=== PATIENT | male | born 1980 | race Caucasian/White ===

== ENCOUNTER 2024-03-01 07:54 | Inpatient (IN) ==
[2024-03-01] MEDS: ACETAMINOPHEN 1,000 MG/100 ML VIAL IV STA (08:40)
[2024-03-01 08:55] LABS: Basophils # (auto) 0.03 K/uL (0.00-0.20); Basophils % (auto) 0.5 %; Eosinophils # (auto) 0.13 K/uL (0.00-0.50); Eosinophils % (auto) 2.1 %; Hematocrit (blood only) 46.9 % (42.0-52.0); Hemoglobin 16.4 g/dl (14.0-18.0); Immature Granulocytes # (auto) 0.02 K/uL (0.01-0.20); Immature Granulocytes % (auto) 0.3 %; Lymphocytes % (auto) 20.6 %; Mean Corpuscular Hemoglobin 29.4 pg (25.0-34.0); Mean Corpuscular Volume 84.2 fL (80.0-100.0); Mean Platelet Volume 10.3 fL (9.4-12.4); Monocytes # (auto) 0.56 K/uL (0.11-0.59); Monocytes % (auto) 8.9 %; Neutrophils # (auto) 4.28 K/uL (1.40-6.50); Neutrophils % (auto) 67.6 %; Platelet Count 114 K/uL (130-400); RDW Coefficient of Variation 11.1 % (11.5-14.5); RDW Standard Deviation 33.8 fL (36.4-46.3); Red Blood Count 5.57 M/uL (4.70-6.10); White Blood Count 6.32 K/ul (4.8-10.8)
[2024-03-01 09:31] LABS: Albumin Level 3.8 gm/dl (3.4-5.0); BUN Creatinine Ratio 17.4 (10-20); Bilirubin Direct 0.3 mg/dl (0-0.2); Bilirubin,Total 1.4 mg/dl (0.2-1.0); Calcium 9.5 mg/dl (8.6-10.3); Creatinine Clr Calc Pharmacy 164.4 ml/min; Potassium 4.1 mmol/L (3.5-5.1)
--- NOTE | 2024-03-01 09:46 | Emergency Department Note ---
Impression & Plan Lumbar disc herniation with radiculopathy, Encounter for pre-operative examination ED Provider Note NAME: DARÍO GONZALEZ AGE: 43 SEX: M : 1980 ARRIVES VIA: Walk-In INFORMANT: Patient, ED PROVIDER(S): Agueda Garcia MD CHIEF COMPLAINT: Back pain HPI: 43-year-old male senting for back pain. Patient had 4+ week history of this. He went to see Dr. Dash, orthopedic spine surgeon, who scheduled the procedure with him tomorrow for this pain. He has 2 bulging disks. He is not having change in his symptoms. He has no numbness in his groin, bowel or bladder incontinence or motor weakness. ROS: See above HPI for pertinent positives & negatives. A total of 10 systems reviewed and were otherwise negative. PAST MEDICAL HISTORY: See Below PAST SURGICAL HISTORY: See Below FAMILY HISTORY: See Below SOCIAL HISTORY: See Below HOME MEDICATIONS: See Below ALLERGIES: See Below VITALS: See Below PHYSICAL EXAMINATION: General: resting comfortably in no acute distress Head: Normocephalic and atraumatic Eyes: Normal inspection, extraocular muscles intact Ear, nose, throat: Normal external exam Neck: Normal range of motion Respiratory: lungs clear to auscultation bilaterally Cardiovascular: Regular rate/rhythm, no murmur GI: soft, nontender, no guarding or rebound Extremities: nontender, moves all extremities, positive straight leg raise test Neuro: The patient awake and alert, appropriately conversive, no focal deficits, symmetric faces Skin: Warm, dry, and intact MEDICAL DECISION MAKING: This is a 41-year-old male presenting for further back pain/hyperglycemia. -Patient on IV acetaminophen with improvement in symptoms -Patient has been on steroids for the past 3 weeks. His glucose is elevated at 346 without signs of significant DKA. Otherwise electrolytes are fairly within normal limits. -His back pain is not consistent with cauda equina. He is having excruciating lower back pain from these disc herniations. -Discussed care with Dr. Dash, his surgeon who will admit him for procedure tomorrow and pain control Differential diagnosis: Herniated disc, cauda equina, musculoskeletal spasm ER treatment provided: See below Independent History obtained from: Mother, father Diagnostics interpreted by me: ECG: None Cardiac Monitoring: An order was placed for continuous cardiac monitoring. The monitor shows a rate of 110 with sinus rhythm. Laboratory studies: As stated above and show below. Imaging studies: See below. Past Med/Surg History Problem List (Updated 03/01/24 @ 15:40 by Agueda Garcia MD) Lumbar disc herniation with radiculopathy (Acute) Encounter for pre-operative examination (Acute) Medical History (Updated 03/01/24 @ 15:40 by Agueda Garcia MD) Obesity Fatty liver Asthma childhood, no current issues, no inhalers Snores no sleep study done Surgical History History of liver biopsy Hx of colonoscopy History of open reduction and internal fixation (ORIF) procedure left ankle fracture Family History Other No family history of adverse response to anesthesia Social History Smoking Status: Never smoker Second Hand Exposure: No; Do You Dip or Chew Tobacco: No; Hx Alcohol Use: Yes (was a daily drinker but states quit ~1 mo ago) Hx Substance Use: No Preferred Language: Eritrean Communication Ability: Effective Radio Communications Superintendent Required: No Beliefs That Will Affect Care: None Current Living Situation: Significant Other Feels Safe at Home: Yes Assistive Devices: Contacts, Crutches and Glasses Allergies Allergies Allergy/AdvReac Type Severity Reaction Status Date / Time No Known Allergies Allergy Verified 02/29/24 10:48 Home Meds Home Medications Medication Instructions Recorded Confirmed pregabalin 75 mg capsule 75 mg PO BID 02/29/24 03/01/24 Results & Data (ED) Vital Signs Vital Signs - 24 hr 03/01/24 08:12 Temperature 36.6 C Temperature Source Temporal Artery Scan Pulse Rate 110 H Respiratory Rate 18 Respiratory Effort / Characteristics Non-Labored Spontaneous Respiratory Depth Normal Blood Pressure 126/88 Blood Pressure Mean 100 Pulse Oximetry 99 Oxygen Delivery Method Room Air Sepsis Recent Fever Within 48 Hours No Sepsis New/Unexplained Change in Mental Status No Sepsis Action Taken by Nursing No Action Required Laboratory Data 03/01/24 08:36 03/01/24 08:36 Lab Results 03/01/24 Range/Units 08:36 WBC 6.32 (4.8-10.8) K/ul RBC 5.57 (4.70-6.10) M/uL Hgb 16.4 (14.0-18.0) g/dl Hct 46.9 (42.0-52.0) % MCV 84.2 (80.0-100.0) fL MCH 29.4 (25.0-34.0) pg MCHC 35.0 (32.0-36.0) g/dL RDW Std Deviation 33.8 L (36.4-46.3) fL RDW Coeff of Smooth 11.1 L (11.5-14.5) % Plt Count 114 L (130-400) K/uL MPV 10.3 (9.4-12.4) fL Immature Gran % (Auto) 0.3 % Neut % (Auto) 67.6 % Lymph % (Auto) 20.6 % [place] % (Auto) 8.9 % Eos % (Auto) 2.1 % Baso % (Auto) 0.5 % Neut # (Auto) 4.28 (1.40-6.50) K/uL Lymph # (Auto) 1.30 (1.20-3.40) K/uL [place] # (Auto) 0.56 (0.11-0.59) K/uL Eos # (Auto) 0.13 (0.00-0.50) K/uL Baso # (Auto) 0.03 (0.00-0.20) K/uL Immature Gran # (Auto) 0.02 (0.01-0.20) K/uL Sodium 133 L (136-145) mmol/L Potassium 4.1 (3.5-5.1) mmol/L Chloride 96 L (98-107) mmol/L Carbon Dioxide 27 (21-32) mmol/L Anion Gap 10 (3-11) BUN 12 (6-23) mg/dl Creatinine 0.69 (0.6-1.4) mg/dl Est Cr Clr Drug Dosing 164.4 ml/min eGFR 118.49 BUN/Creatinine Ratio 17.4 (10-20) Glucose 346 H* (70-99(Fasting)) mg/dl Calcium 9.5 (8.6-10.3) mg/dl Total Bilirubin 1.4 H (0.2-1.0) mg/dl Direct Bilirubin 0.3 H (0-0.2) mg/dl AST 39 (13-39) U/L ALT 86 H (7-52) U/L Alkaline Phosphatase 81 (34-104) U/L Total Protein 7.0 (6.0-8.3) gm/dl Albumin 3.8 (3.4-5.0) gm/dl Lipase 29 (11-82) U/L Administered Medications Discontinued Medications Acetaminophen (Ofirmev) 1,000 mg in 100 mls @ 400 mls/hr IV NOW STA Stop: 03/01/24 08:35 Last Infusion: 03/01/24 08:55 Dose: Infused Documented By: Admin: 03/01/24 08:40 Dose: 400 mls/hr Documented By: MMF Discharge Plan Visit Data Chief Complaint: Back Injury/Pain Stated Complaint: BACK PAIN, TRAVEL DOWN LT LEG, HYPERGLYCEMIA ED Provider: Agueda Garcia Discharge Problem: Lumbar disc herniation with radiculopathy, Encounter for pre-operative examination Patient Disposition: Admitted As Inpatient Discharge Instructions Interventions: ED Discharge Assessment Last Done: 03/01/24 15:24
--- NOTE | 2024-03-01 13:24 | History & Physical Report ---
Date of Service March 01, 2024 Assessment & Plan (1) Lumbar disc herniation with radiculopathy: Plan: MRI lumbar spine dated 02/22/2024 performed 611 L2 unavailable for review. Demonstrates marked degenerative change with Modic disease L4-L5. There is components of bilateral neuroforaminal disease. There is evidence of a large disc herniation with caudal migration at L4-L5 with significant displacement of the traversing L5 nerve root. L5-S1 a small central disc osteophyte complex but no neural compression. Plan at length yesterday with the patient and his family reviewing his clinical course and treatment plan. We are considering a lumbar decompression discectomy L4-L5 on the left. My concern is the chronic back pain and met and significant degenerative disc disease leaving him with chronic pain as well as increased risk for recurrent disc herniation. Subsequently may consider a lumbar fusion at the time of surgery. Risk benefits pros cons alternatives were all in detail. Risk include but not limited to anesthesia blindness stroke paralysis nerve damage blood loss requiring transfusion infection requiring reoperation. Isabella with a marked improvement of his back and leg symptoms and and time recovery of his neurologic deficit. At this time we will be made n.p.o. after midnight plan for surgery tomorrow. History of Present Illness Chief Complaint: Back and left leg pain with weakness Primary Care Provider: NO PCP This is a 43-year-old male presents above-mentioned diagnosis. His pain is incapacitating. He has been unable to ambulate for approximately 4 weeks. He has had a history of chronic back pain with intermittent leg pain that progressed to its current severity when trying to load a crossbow 4 weeks ago. He now can only find a comfortable position when lying supine. Standing and walking requires crutches. He notes foot drop on the left and inability to pushoff with his left leg. He denies radicular complaints down his right lower extremity. He has failed physical therapy. Oral steroids provided little to no help. 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 He has been unable to work since the onset of his pain. Allergies Allergy/AdvReac Type Severity Reaction Status Date / Time No Known Allergies Allergy Verified 02/29/24 10:48 Home Medications Medication Instructions Recorded Confirmed Type pregabalin 75 mg capsule 75 mg PO BID 02/29/24 03/01/24 History Past Med/Surg History Problem List (Updated 03/01/24 @ 13:23 by Sivakumar Dash DO) Lumbar disc herniation with radiculopathy Encounter for pre-operative examination Medical History (Updated 03/01/24 @ 13:23 by Sivakumar Dash DO) Obesity Fatty liver Asthma childhood, no current issues, no inhalers Snores no sleep study done Surgical History History of liver biopsy Hx of colonoscopy History of open reduction and internal fixation (ORIF) procedure left ankle fracture Family History Other No family history of adverse response to anesthesia Social History Smoking Status: Never smoker Second Hand Exposure: No; Do You Dip or Chew Tobacco: No; Tobacco Cessation Education Requested by Patient: No Hx Alcohol Use: Yes (was a daily drinker but states quit ~1 mo ago) Hx Substance Use: No Preferred Language: [place]an Communication Ability: Effective Fund Manager Required: No Beliefs That Will Affect Care: None Current Living Situation: Significant Other Other Information That Helps Us Care for You: No Feels Safe at Home: Yes Safety Concerns: Feels Safe At This Time Assistive Devices: Contacts, Crutches and Glasses Physical Exam Physical Exam: On exam patient is most comfortable lying supine. Sitting up reproduces symptoms. He is +5-5 right plantarflexion dorsiflexion centralizes longus quadriceps. Sensory is intact. On the left he has marked tension signs straight leg raising. He has a 4 5 left dorsiflexion extensor houses longus plantarflexion. There is marked decrease in sensation. Results & Data Results & Data Vital Signs (Past 12 Hours) Vital Signs Temp Pulse Resp BP Pulse Ox O2 Del Method 03/01/24 08:12 36.6 C 110 H 18 126/88 99 Room Air Code Status & VTE Plan VTE Prophylaxis Plan VTE Prophylaxis will be ordered: Yes
[2024-03-01] MEDS ORDERED: ACETAMINOPHEN 1,000 MG/100 ML VIAL IV PRN (15:23)
[2024-03-01] MEDS ORDERED: LORazepam 0.5 MG TAB PO PRN (15:23)
[2024-03-01] MEDS ORDERED: ONDANSETRON INJ 2 MG/ML 2 ML VIAL IV PRN (15:23)
[2024-03-01] MEDS ORDERED: NALOXONE HCL 0.4 MG/1 ML VIAL/CARP IV PRN (15:23)
[2024-03-01] MEDS ORDERED: traMADol HCL 50 MG TABLET PO PRN (15:23)
[2024-03-01] MEDS ORDERED: LORazepam 2 MG/1 ML VIAL IV PRN (15:23)
[2024-03-01] MEDS ORDERED: PROMETHAZINE 12.5 MG/50.5 ML BAG IV PRN (15:23)
[2024-03-01] MEDS ORDERED: ONDANSETRON 4 MG OD TAB PO PRN (15:23)
[2024-03-01] MEDS ORDERED: ACETAMINOPHEN 500 MG TAB PO PRN (15:23)
[2024-03-01] MEDS ORDERED: MAGNESIUM HYDROXIDE SUSP 30 ML UDC PO PRN (15:23)
[2024-03-01] MEDS ORDERED: METOCLOPRAMIDE HCL INJ 5 MG/ML 2 ML VIAL IV PRN (15:23)
[2024-03-01] MEDS ORDERED: HYDROmorphone INJ 1 MG/ML SYRINGE IV PRN (15:23)
[2024-03-01] MEDS: oxyCODONE HCL IR 5 MG TAB (IMMEDIATE RELEASE) PO PRN (16:57)
--- NOTE | 2024-03-01 18:13 | Hospitalist Consultation ---
Date of Consultation March 01, 2024 Assessment & Plan (1) Lumbar disc herniation with radiculopathy: History of Present Illness Reason for Consultation: Routine Hospitalist Consultation - Medical Management Requesting Physician: Sivakumar Dash DO Attending Physician: Sivakumar Dash DO History of Present Illness Ross Hernandez is a 43y/o M with PMHx significant for fatty liver, neuropathy, asthma and obesity [facility] Dash for routine medical management. Allergies Allergy/AdvReac Type Severity Reaction Status Date / Time No Known Allergies Allergy Verified 02/29/24 10:48 Home Medications Medication Instructions Recorded Confirmed Type pregabalin 75 mg capsule 75 mg PO BID 02/29/24 03/01/24 History Patient History Medical History Obesity Fatty liver Asthma childhood, no current issues, no inhalers Snores no sleep study done Surgical History History of liver biopsy Hx of colonoscopy History of open reduction and internal fixation (ORIF) procedure left ankle fracture Family History Other No family history of adverse response to anesthesia Social History Smoking Status: Never smoker Second Hand Exposure: No; Do You Dip or Chew Tobacco: No; Hx Alcohol Use: Yes (was a daily drinker but states quit ~1 mo ago) Hx Substance Use: No Preferred Language: Paraguayan Communication Ability: Effective Police Artist Required: No Beliefs That Will Affect Care: None Current Living Situation: Significant Other Feels Safe at Home: Yes Safety Concerns: Feels Safe At This Time Assistive Devices: Contacts and Crutches Review of Systems Review of Systems: At least ten systems reviewed and negative, except as noted in the HPI. Results & Data Results & Data Vital Signs (Past 12 Hours) Vital Signs Temp Pulse Pulse Resp BP BP Pulse Ox 03/01/24 16:33 03/01/24 16:33 36.9 C 101 H 18 161/111 H 98 03/01/24 16:23 36.8 C 89 18 122/60 98 03/01/24 08:12 36.6 C 110 H 18 126/88 99 O2 Del Method 03/01/24 16:33 Room Air 03/01/24 16:33 Room Air 03/01/24 16:23 Room Air 03/01/24 08:12 Room Air Laboratory Results Short CBC 03/01/24 Range/Units 08:36 WBC 6.32 (4.8-10.8) K/ul Hgb 16.4 (14.0-18.0) g/dl Hct 46.9 (42.0-52.0) % Plt Count 114 L (130-400) K/uL BMP 03/01/24 08:36 Sodium 133 L Potassium 4.1 Chloride 96 L Carbon Dioxide 27 BUN 12 Creatinine 0.69 Glucose 346 H* Calcium 9.5 Liver Function 03/01/24 Range/Units 08:36 Total Bilirubin 1.4 H (0.2-1.0) mg/dl Direct Bilirubin 0.3 H (0-0.2) mg/dl AST 39 (13-39) U/L ALT 86 H (7-52) U/L Alkaline Phosphatase 81 (34-104) U/L Albumin 3.8 (3.4-5.0) gm/dl Medications Administered Oxycodone HCl (Oxycodone Hcl Ir 5 Mg Tab (Immediate Release)) 5 - 10 mg PO Q4H PRN PRN Reason: mod to severe pain Stop: 03/15/24 15:22 Last Admin: 03/01/24 16:57 Dose: 5 mg Documented By: BMR Discontinued Medications Acetaminophen (Ofirmev) 1,000 mg in 100 mls @ 400 mls/hr IV NOW STA Stop: 03/01/24 08:35 Last Infusion: 03/01/24 08:55 Dose: Infused Documented By: Admin: 03/01/24 08:40 Dose: 400 mls/hr Documented By: MMF
[2024-03-01] MEDS ORDERED: GLUCOSE 10 TAB/TUBE PO PRN (19:39)
[2024-03-01] MEDS ORDERED: GLUCOSE 40% GEL 15 GM TUBE PO PRN (19:39)
[2024-03-01] MEDS ORDERED: GLUCAGON FOR INJ 1 MG VIAL SQ PRN (19:39)
[2024-03-01] MEDS ORDERED: CARBOHYDRATES FOR HYPOGLYCEMIA PO PRN (19:39)
[2024-03-01] MEDS ORDERED: DEXTROSE 50% 50 ML SYRINGE IV PRN (19:39)
[2024-03-01] MEDS: HYDROmorphone INJ 0.5 MG/0.5 ML SYR IV PRN (19:53)
[2024-03-01] MEDS: PREGABALIN 75 MG CAP PO SCH (20:03)
[2024-03-01] MEDS: INSULIN ASPART PER UNIT CHARGE SC SCH (21:39)
--- NOTE | 2024-03-01 22:44 | Consultation ---
Date of Consultation March 01, 2024 Assessment & Plan (1) Severe back pain: 43-year-old male comes because of severe back pain. Patient states he has back pain for years but 4 weeks ago when he was trying to load crossbow the pain got worse. Since then it is progressively worsening and pain shooting into his left thigh region. He says he could not ambulate more than few feet because of severe pain. Says he is using crutches. Denies any bowel or bladder incontinence. Denies any fever. No abdominal pain. No chest pain or shortness of breath. No headache or dizziness. No runny nose or sore throat. Appetite is okay. Patient says he took prednisone for 3 weeks. Since last few days he i s on pregabalin. Patient denies any history of diabetes or hypertension. But his sugars are running high here on the labs. Severe back pain Lumbar disc herniation with radiculopathy based on MRI done seems as outpatient Pain control Management as per spine Ortho. Hyperglycemia Recently was on steroids sugars in 300s Possible underlying diabetes Sliding scale Will check HbA1c levels Close monitor DVT prophylaxis Per orthopedics Disposition Per orthopedics History of Present Illness Requesting Physician: 43-year-old male comes because of severe back pain. Patient states he has back pain for years but 4 weeks ago when he was trying to load crossbow the pain got worse. Since then it is progressively worsening and pain shooting into his left thigh region. He says he could not ambulate more than few feet because of severe pain. Says he is using crutches. Denies any bowel or bladder incontinence. Denies any fever. No abdominal pain. No chest pain or shortness of breath. No headache or dizziness. No runny nose or sore throat. Appetite is okay. Patient says he took prednisone for 3 weeks. Since last few days he is on pregabalin. Patient denies any history of diabetes or hypertension. But his sugars are running high here on the labs. Past medical history. None as per patient. Past surgical history. Left ankle surgery. Liver biopsy. Social history. No smoking. Says he used to drink 10 beers in a week but has not drank any since last 4 weeks. Denies any drug use. Family history. Father has hypertension. Reason for Consultation: Severe back pain Attending Physician: Sivakumar Dash, DO Allergies Allergy/AdvReac Type Severity Reaction Status Date / Time No Known Allergies Allergy Verified 02/29/24 10:48 Home Medications Medication Instructions Recorded Confirmed Type pregabalin 75 mg capsule 75 mg PO BID 02/29/24 03/01/24 History Patient History Medical History Obesity Fatty liver Asthma childhood, no current issues, no inhalers Snores no sleep study done Surgical History History of liver biopsy Hx of colonoscopy History of open reduction and internal fixation (ORIF) procedure left ankle fracture Family History Other No family history of adverse response to anesthesia Social History Smoking Status: Never smoker Second Hand Exposure: No; Do You Dip or Chew Tobacco: No; Hx Alcohol Use: Yes (was a daily drinker but states quit ~1 mo ago) Hx Substance Use: No Preferred Language: Monegasque Communication Ability: Effective Fishing Accessories Maker Required: No Beliefs That Will Affect Care: None Current Living Situation: Significant Other Feels Safe at Home: Yes Safety Concerns: Feels Safe At This Time Assistive Devices: Contacts and Crutches Review of Systems Review of Systems: All systems reviewed & are unremarkable except as noted in HPI & below Physical Exam Physical Exam: General-Not in distress Head- atraumatic Eyes- PERRL. ENT- oropharynx clear Neck- supple, no JVD. Lungs- clear to auscultation no wheezing or crackles. Heart- regular rate and rhythm; no murmur, no gallop. Abdomen- normal bowel sounds, soft, nontender, no distension Extremities- no pretibial edema, no erythema seen Neuro- alert, oriented PERRL, no facial palsy; no dysarthria; moves extremities Musculoskeletal Straight raise leg mild positive left leg Results & Data Vital Signs (Past 12 Hours) Vital Signs Temp Pulse Pulse Resp BP BP Pulse Ox 03/01/24 18:28 36.9 C 97 H 18 156/114 H 99 03/01/24 16:33 03/01/24 16:33 36.9 C 101 H 18 161/111 H 98 03/01/24 16:23 36.8 C 89 18 122/60 98 03/01/24 08:12 36.6 C 110 H 18 126/88 99 O2 Del Method 03/01/24 18:28 Room Air 03/01/24 16:33 Room Air 03/01/24 16:33 Room Air 03/01/24 16:23 Room Air 03/01/24 08:12 Room Air Diagnostic Findings Laboratory Results WBC 6.32 K/ul (4.8-10.8) 03/01/24 08:36 RBC 5.57 M/uL (4.70-6.10) 03/01/24 08:36 Hgb 16.4 g/dl (14.0-18.0) 03/01/24 08:36 Hct 46.9 % (42.0-52.0) 03/01/24 08:36 MCV 84.2 fL (80.0-100.0) 03/01/24 08:36 MCH 29.4 pg (25.0-34.0) 03/01/24 08:36 MCHC 35.0 g/dL (32.0-36.0) 03/01/24 08:36 RDW Std Deviation 33.8 fL (36.4-46.3) L 03/01/24 08:36 RDW Coeff of Smooth 11.1 % (11.5-14.5) L 03/01/24 08:36 Plt Count 114 K/uL (130-400) L 03/01/24 08:36 MPV 10.3 fL (9.4-12.4) 03/01/24 08:36 Immature Gran % (Auto) 0.3 % 03/01/24 08:36 Neut % (Auto) 67.6 % 03/01/24 08:36 Lymph % (Auto) 20.6 % 03/01/24 08:36 [place] % (Auto) 8.9 % 03/01/24 08:36 Eos % (Auto) 2.1 % 03/01/24 08:36 Baso % (Auto) 0.5 % 03/01/24 08:36 Neut # (Auto) 4.28 K/uL (1.40-6.50) 03/01/24 08:36 Lymph # (Auto) 1.30 K/uL (1.20-3.40) 03/01/24 08:36 [place] # (Auto) 0.56 K/uL (0.11-0.59) 03/01/24 08:36 Eos # (Auto) 0.13 K/uL (0.00-0.50) 03/01/24 08:36 Baso # (Auto) 0.03 K/uL (0.00-0.20) 03/01/24 08:36 Immature Gran # (Auto) 0.02 K/uL (0.01-0.20) 03/01/24 08:36 Sodium 133 mmol/L (136-145) L 03/01/24 08:36 Potassium 4.1 mmol/L (3.5-5.1) 03/01/24 08:36 Chloride 96 mmol/L (98-107) L 03/01/24 08:36 Carbon Dioxide 27 mmol/L (21-32) 03/01/24 08:36 Anion Gap 10 (3-11) 03/01/24 08:36 BUN 12 mg/dl (6-23) 03/01/24 08:36 Creatinine 0.69 mg/dl (0.6-1.4) 03/01/24 08:36 Est Cr Clr Drug Dosing 164.4 ml/min 03/01/24 08:36 eGFR 118.49 03/01/24 08:36 BUN/Creatinine Ratio 17.4 (10-20) 03/01/24 08:36 Glucose 346 mg/dl (70-99(Fasting)) H* 03/01/24 08:36 POC Glucose 317 mg/dl (70-99) H* 03/01/24 20:42 Calcium 9.5 mg/dl (8.6-10.3) 03/01/24 08:36 Total Bilirubin 1.4 mg/dl (0.2-1.0) H 03/01/24 08:36 Direct Bilirubin 0.3 mg/dl (0-0.2) H 03/01/24 08:36 AST 39 U/L (13-39) 03/01/24 08:36 ALT 86 U/L (7-52) H 03/01/24 08:36 Alkaline Phosphatase 81 U/L (34-104) 03/01/24 08:36 Total Protein 7.0 gm/dl (6.0-8.3) 03/01/24 08:36 Albumin 3.8 gm/dl (3.4-5.0) 03/01/24 08:36 Lipase 29 U/L (11-82) 03/01/24 08:36
[2024-03-02] MEDS: INSULIN ASPART PER UNIT CHARGE SC STA ×2 (01:33→12:23)
[2024-03-02] MEDS: INSULIN ASPART PER UNIT CHARGE SC SCH ×2 (06:03→17:33)
[2024-03-02 06:29] LABS: Hematocrit (blood only) 45.9 % (42.0-52.0); Hemoglobin 15.9 g/dl (14.0-18.0); Mean Corpuscular Hemoglobin 29.2 pg (25.0-34.0); Mean Corpuscular Hgb Conc 34.6 g/dL (32.0-36.0); Mean Corpuscular Volume 84.4 fL (80.0-100.0); Mean Platelet Volume 10.2 fL (9.4-12.4); Platelet Count 112 K/uL (130-400); RDW Coefficient of Variation 11.1 % (11.5-14.5); RDW Standard Deviation 34.2 fL (36.4-46.3); Red Blood Count 5.44 M/uL (4.70-6.10)
[2024-03-02 06:32] LABS: Albumin Globulin Ratio 1.1 (0.9-2); Albumin Level 3.7 gm/dl (3.4-5.0); BUN Creatinine Ratio 19.7 (10-20); Bilirubin,Total 1.1 mg/dl (0.2-1.0); Calcium 9.5 mg/dl (8.6-10.3); Creatinine Clr Calc Pharmacy 159.8 ml/min; Globulin 3.5 gm/dl (2.5-4.0); Magnesium 1.9 mg/dl (1.7-2.4); Phosphorus 4.2 mg/dl (2.5-4.9); Potassium 3.9 mmol/L (3.5-5.1); Total Protein 7.2 gm/dl (6.0-8.3)
[2024-03-02 08:35] LABS: Estimated Average Glucose 335 mg/dl; Hemoglobin A1C 13.3 % (4.5-5.6)
[2024-03-02] MEDS: LACTATED RINGER'S 1,000 ML IV SCH (12:03)
[2024-03-02] MEDS ORDERED: PHARMACY GLYCEMIC MGMT CONSULT PRN (12:24)
--- NOTE | 2024-03-02 12:26 | History & Physical Bridge Note ---
Date of Service March 02, 2024 History & Physical Bridge Note I have examined the patient, reviewed the History & Physical and in the interval since the performance of the History & Physical I have noted the following changes of clinical significance: no changes noted Patient's had severe left leg pain with inability to ambulate for over 4 weeks. He has been on chronic steroids and is struggling with hypertension and hyperglycemia. He is demonstrating progressive neurologic deficit. In light of his severe pain and inability to ambulate or work and now struggling with metabolic disease and recommending emergent lumbar laminectomy L4-L5 with possible fusion.
[2024-03-02] MEDS: ceFAZolin 2000MG 2,000 MG/15 ML SYR IV SCH ×2 (12:51→20:58)
--- NOTE | 2024-03-02 13:37 | Hospitalist Progress Note ---
Date of Service March 02, 2024 Assessment & Plan (1) Severe back pain: Plan: 43-year-old male comes because of severe back pain. Patient states he has back pain for years but 4 weeks ago when he was trying to load crossbow the pain got worse. Since then it is progressively worsening and pain shooting into his left thigh region. He says he could not ambulate more than few feet because of severe pain. Says he is using crutches. Denies any bowel or bladder incontinence. Denies any fever. No abdominal pain. No chest pain or shortness of breath. No headache or dizziness. No runny nose or sore throat. Appetite is okay. Patient says he took prednisone for 3 weeks. Since last few days he is on pregabalin. Patient denies any history of diabetes or hypertension. But his sugars are running high here on the labs. Severe back pain Lumbar disc herniation with radiculopathy based on MRI done seems as outpatient Pain control Management as per spine Ortho. Hyperglycemia New Onset T2DM Recently was on steroids sugars in 300s Consult glycemic pharmacist and plant technical specialist He likely will need d/c on insulin and will need close OP follow up DVT prophylaxis Per orthopedics PCP: None, pt will need to establish with PCP Disposition Per orthopedics I spent a total of 45 minutes reviewing notes, outpatient records, labs, medication, coordinating, documenting and providing care for this patient excluding time spent in the performance of separately billed services. Admission and Anticipated Discharge Date Admission Date: March 01, 2024 Supervising Physician Co-Signing Physician Notes Patient here for severe back pain and plan for surgery for lumbar disc herniation today. Patient was not seen by myself personally. patient noted to have elevated A1c, will need plant technical specialist consult and possible insulin and oral meds at discharge. Subjective NAEO. He reports pain over the last 4 weeks radiating down L leg making it extremely difficult to ambulate. He denies f/c/s, chest pain, sob, n/v/d. He is npo for procedure today. Review of Systems Review of Systems: All systems reviewed & are unremarkable except as noted in HPI & below Physical Exam Physical Exam: Gen: WD/WN, NAD, A&O x3 HEENT: Normocephalic, atraumatic, conjunctivae moist, sclerae anicteric, mucous membranes moist. Lung: Clear to Auscultation bilaterally, no wheezes/rales/rhonchi Heart: Regular rate, regular rhythm, no murmurs, rubs, or gallops Abdomen: Soft, NT, ND +BS x 4 Extremities: No edema Skin: Warm, no rash, negative turgor. Results & Data Results & Data Vital Signs (Past 12 Hours) Vital Signs Temp Pulse Pulse Resp BP Pulse Ox O2 Del Method 03/02/24 12:07 156/108 H 03/02/24 12:00 163/111 H 03/02/24 11:58 36.9 C 98 H 20 175/111 H 97 Room Air 03/02/24 07:26 36.7 C 91 H 16 137/95 96 Room Air 03/02/24 04:21 36.6 C 91 H 16 123/83 97 Room Air Medications Administered Current Inpatient Medications Acetaminophen (Acetaminophen 500 Mg Tab) 1,000 mg PO Q8H PRN PRN Reason: MILD Pain Scale 1,2,3 & Pre PT Stop: 03/31/24 15:22 Bisacodyl (Bisacodyl 10 Mg Supp) 10 mg GA DAILY PRN PRN Reason: Constipation Stop: 04/02/24 12:48 Dextrose (Dextrose 50% 50 Ml Syringe) 25 - 50 ml IV UD PRN; Protocol PRN Reason: Hypoglycemia Protocol Stop: 03/31/24 19:38 Glucagon (Glucagon For Inj 1 Mg Vial) 1 mg SQ UD PRN; Protocol PRN Reason: Hypoglycemia Protocol Stop: 03/31/24 19:38 Glucose (Glucose 40% Gel 15 Gm Tube) 15 - 30 gm PO UD PRN; Protocol PRN Reason: Hypoglycemia Protocol Stop: 03/31/24 19:38 Glucose (Glucose 10 Tab/Tube) 4 - 8 tab PO UD PRN; Protocol PRN Reason: Hypoglycemia Protocol Stop: 03/31/24 19:38 Hydromorphone HCl (Hydromorphone Inj 0.5 Mg/0.5 Ml Syr) 0.5 mg IV Q3H PRN PRN Reason: MOD pain (scale 4-6) & Pre PT Stop: 03/15/24 15:22 Last Admin: 03/01/24 19:53 Dose: 0.5 mg Hydromorphone HCl (Hydromorphone Inj 1 Mg/Ml Syringe) 1 mg IV Q3H PRN PRN Reason: severe pain (scale 7-10) Stop: 03/15/24 15:22 Acetaminophen (Ofirmev) 1,000 mg in 100 mls @ 400 mls/hr IV Q8H PRN PRN Reason: Pain Rating 1-3 & Pre PT Stop: 03/02/24 15:24 Cefazolin Sodium (Ancef 2000mg) 2,000 mg in 15 mls @ 3.75 mls/min IV PREOP ARACELI; Protocol Stop: 03/03/24 05:59 Promethazine HCl (Phenergan) 12.5 mg in 50.5 mls @ 202 mls/hr IV Q6H PRN PRN Reason: Nausea And Vomiting Stop: 03/31/24 15:22 Lactated Ringer's (Lr) 1,000 mls @ 15 mls/hr IV .Q24H ARACELI Stop: 03/03/24 11:44 Last Infusion: 03/02/24 12:49 Dose: Infused Insulin Aspart (Insulin Aspart Per Unit Charge) 0 units SC Q6 ARACELI Stop: 04/01/24 05:59 Last Admin: 03/02/24 06:03 Dose: 4 units Lorazepam (Lorazepam 0.5 Mg Tab) 0.5 mg PO Q8H PRN PRN Reason: sedation/anxiety Stop: 03/31/24 15:22 Lorazepam (Lorazepam 2 Mg/1 Ml Vial) 0.5 mg IV Q8H PRN PRN Reason: Sedation/Anxiety Stop: 03/31/24 15:22 Magnesium Hydroxide (Magnesium Hydroxide Susp 30 Ml Udc) 30 ml PO Q24H PRN PRN Reason: Constipation Stop: 03/31/24 15:22 Metoclopramide HCl (Metoclopramide Hcl Inj 5 Mg/Ml 2 Ml Vial) 10 mg IV Q6H PRN PRN Reason: Nausea &/or Vomiting Stop: 03/31/24 15:22 Miscellaneous (Carbohydrates For Hypoglycemia ) 15 - 30 gm PO UD PRN PRN Reason: Hypoglycemia Protocol Stop: 03/31/24 19:38 Miscellaneous Information (Pharmacy Glycemic Mgmt Consult) 1 each N/A UD PRN; Protocol PRN Reason: Consult Stop: 04/01/24 12:23 Naloxone HCl (Naloxone Hcl 0.4 Mg/1 Ml Vial/Carp) 0.1 mg IV Q5M PRN PRN Reason: Oversedation/respiratory dep Stop: 03/31/24 15:22 Ondansetron HCl (Ondansetron Inj 2 Mg/Ml 2 Ml Vial) 4 mg IV Q6H PRN PRN Reason: Nausea &/or Vomiting Stop: 03/31/24 15:22 Ondansetron HCl (Ondansetron 4 Mg Od Tab) 4 mg PO Q6H PRN PRN Reason: Nausea Stop: 03/31/24 15:22 Oxycodone HCl (Oxycodone Hcl Ir 5 Mg Tab (Immediate Release)) 5 - 10 mg PO Q4H PRN PRN Reason: mod to severe pain Stop: 03/15/24 15:22 Last Admin: 03/02/24 10:40 Dose: 5 mg Pregabalin (Pregabalin 75 Mg Cap) 75 mg PO BID ARACELI Stop: 03/31/24 20:59 Last Admin: 03/02/24 08:27 Dose: 75 mg Tramadol HCl (Tramadol Hcl 50 Mg Tablet) 50 - 100 mg PO Q4H PRN PRN Reason: Moderate-Severe pain & Pre PT Stop: 03/31/24 15:22
[2024-03-02] MEDS: FLOSEAL HEMOSTATIC MATRIX 10ML TOP ONE (14:25)
[2024-03-02] MEDS: ceFAZolin 330 MG/ML 1 GM VIAL ONE (14:32)
[2024-03-02] MEDS: BUPIVACAINE/EPINEPHRINE 0.25% 1:200,000 30 ML VIAL ONE (14:32)
--- NOTE | 2024-03-02 14:43 | Operative Report ---
Post Operative Report Pre & Post Diagnosis Operation Date: 03/02/24 12:55 Pre-Op Diagnosis: Lumbar disc herniation with radiculopathy Lumbar foraminal stenosis Post-Op Diagnosis: Same I identified the patient and participated in the time-out.: Yes Procedure Operation Date: 03/02/24 12:55 Actual Procedures #1 lumbar decompression with bilateral medial facetectomies and foraminotomies L4-L5. #2 posterior spinal fusion L4-5 by #3 placed posterior instrumentation L4-5. #4 interbody fusion L4-L5. #5 placement Spira 14 x 26 mm x 2 at L4-5. #6 placement of locally harvested morselized autograft in the posterior gutters. #7 placement is collagen sponge combined with Koros in the posterior lateral gutters and os design interbody space. #8 placement of versa wrap of the exposed dura. Surgeon Sivakumar Dash, Boiler Installer Katiuska Perez Estimated Blood Loss 250 Findings Consistent with Post-Op Diagnosis Specimens None Indications This is a 43-year-old male who presents with severe lumbar radiculopathy inability ambulate and progressive neurologic deficit. Patient also demonstrating evidence of hyperglycemia and hypertension secondary to chronic stress response due to chronic steroids to try the ameliorate his pain. He subsequently underwent emergent decompression fusion. Description of Procedure Patient was met with identified informed consent obtained. Patient was then taken to the operative suite underwent intubation placed in a prone position on the Andrew table atop the Vasu frame. All bony promises well-padded eyes inspected to ensure no external precipice upon the. This point the lumbar spine was prepped and draped normal sterile fashion. Sharp dissection with the assistance of Bovie cautery from down to and exposing the lamina of L4-L5. Then performed a decompression of L4 and attempted to mobilize the traversing L5 nerve root. I had extended decompression at the point of compromising the facet on the left to adequately access of the traversing root and address the disc extending out into the neuroforamen. Massive fragment of disc material was identified directly beneath the traversing root limiting in its excursion. After removing the fragments of disc I completed the laminectomy to include medial facetectomies and foraminotomies bilaterally. I then placed pedicle screws at L4-L5 bilaterally with assistance of fluoroscopy and appropriate size jerome placed. By way of transforaminal approach on the left a discectomy of L4-L5 was performed endplates guided to subcortical mean bone and a 14 x 26 mm spiral cage filled with os designed tapped into position. Then proceeded to the right transforaminal region. Discectomy performed endplates guided to subcortical bleeding bone and the second 14 x 26 mm Spira cage filled with os design tapped position. Rods were then compressed locked in final position bilaterally. Transverse processes of L4-5 burred to subcortical bleeding bone infuse collagen sponge, with Koros and local autograft placed in the posterior gutters. Versa wrap placed over the exposed dura. 15 round KEYUR drain inserted. The incision was then closed with 1 Vicryl the fascia 2-0 Vicryl subcutaneously and 4 Monocryl for final skin closure. Steri-Strips sterile dressing placed. Patient waken taken PACU stable condition. Please note Katiuska Perez's present for patient positioning complex portions of the patient's surgery. I attest to the content of the Intraoperative Record and any orders documented therein. Any exceptions are noted below.
--- NOTE | 2024-03-02 14:45 | Pharmacy Report ---
Pharmacy Glycemic Short Note 2 - Date of Service March 02, 2024 - Glycemic Short BSG Results (Last 24 hours): 03/01/24 03/01/24 03/02/24 20:38 20:42 00:16 Glucose POC Glucose 321 H* 317 H* 265 H 03/02/24 03/02/24 03/02/24 05:23 05:53 12:00 Glucose 251 H POC Glucose 251 H 239 H 03/02/24 13:48 Glucose POC Glucose 214 H OUTPATIENT ANTIDIABETIC REGIMEN: * none ASSESSMENT: * Ross Hernandez is a 43 yo M w/hx of asthma, obesity, fatty liver. Pt presents with severe back pain and difficulty w/ambulation x4 weeks. Patient found to have lumber disc herniation w/radiculopathy per MRI. Patient is currently undergoing L4-L5 decompression/possible fusion. 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 BSGs have been high since admission in 200s-300s and his current A1c is 13.3 with no former dx of diabetes, suggesting new onset diabetes and therefore pharmacy was consulted for glycemic management. PLAN FOR INPATIENT GLYCEMIC CONTROL: * Basal insulin * Plan to give Lantus x1 dose once patient confirmed he received dexamethasone preop; a reasonable dose would be 30 units. * Will likely need Lantus daily if dexamethasone ordered postop as well * Bolus insulin * NovoLog per scale ACHS or Q6hrs while NPO * Goal Range: Low 110 mg/dL - High 140 mg/dL * Correction Factor: 15 mg/dL/unit * Nutritional / Prandial insulin per carb ratio of 1 unit per 5 grams CHO consumed
[2024-03-02] MEDS: fentaNYL citrate PF 100 MCG/2 ML VIAL IV PRN (15:05)
[2024-03-02] MEDS ORDERED: HYDROmorphone INJ 2 MG/ML SYR/VIAL IV PRN (15:32)
[2024-03-02] MEDS ORDERED: ATROPINE SULFATE 0.1 MG/ML 10ML SYR IV PRN (15:32)
[2024-03-02] MEDS ORDERED: ePHEDrine sulfate 50 MG/ML AMP IV PRN (15:32)
[2024-03-02] MEDS ORDERED: ONDANSETRON INJ 2 MG/ML 2 ML VIAL IV PRN ×2 (15:32→16:33)
[2024-03-02] MEDS: INSULIN ASPART PER UNIT CHARGE SC ONE (16:25)
[2024-03-02] MEDS ORDERED: DO NOT ADMINISTER PNEUMOCOCCAL VACCINE PRN (16:33)
[2024-03-02] MEDS ORDERED: bisacodyL 10 MG SUPP PR PRN (16:33)
[2024-03-02] MEDS ORDERED: HYDROmorphone INJ 0.5 MG/0.5 ML SYR IV PRN (16:33)
[2024-03-02] MEDS ORDERED: ALUMINUM/MAGNESIUM SUSP 30 ML UDC PO PRN (16:33)
[2024-03-02] MEDS ORDERED: ACETAMINOPHEN 1,000 MG/100 ML VIAL IV PRN (16:33)
[2024-03-02] MEDS ORDERED: FAMOTIDINE 20 MG TAB PO PRN (16:33)
[2024-03-02] MEDS ORDERED: MAGNESIUM HYDROXIDE SUSP 30 ML UDC PO PRN (16:33)
[2024-03-02] MEDS ORDERED: ACETAMINOPHEN 500 MG TAB PO PRN (16:33)
[2024-03-02] MEDS ORDERED: PROMETHAZINE 12.5 MG/50.5 ML BAG IV PRN (16:33)
[2024-03-02] MEDS ORDERED: hydrOXYzine HCl 25 MG TAB PO PRN (16:33)
[2024-03-02] MEDS ORDERED: DO NOT ADMINISTER FLU VACCINE PRN (16:33)
[2024-03-02] MEDS ORDERED: SOD PHOSPHATE/SOD BIPHOSPHATE ENEMA 132 ML BTL PR PRN (16:33)
[2024-03-02] MEDS ORDERED: NALOXONE HCL 0.4 MG/1 ML VIAL/CARP IV PRN (16:33)
[2024-03-02] MEDS ORDERED: LORazepam 0.5 MG TAB PO PRN (16:33)
[2024-03-02] MEDS ORDERED: ONDANSETRON 4 MG OD TAB PO PRN (16:33)
[2024-03-02] MEDS ORDERED: METOCLOPRAMIDE HCL INJ 5 MG/ML 2 ML VIAL IV PRN (16:33)
[2024-03-02] MEDS ORDERED: LORazepam 2 MG/1 ML VIAL IV PRN (16:33)
[2024-03-02] MEDS ORDERED: diphenhydrAMINE Capsule 25 MG CAP PO PRN (16:33)
--- NOTE | 2024-03-02 16:43 | Anesthesiology Progress Note ---
Date of Service March 02, 2024 Anesthesia Post Procedure Vital Signs Vital Signs: Temp Pulse Pulse Resp BP BP Pulse Ox 03/02/24 16:25 36.6 C 103 H 13 123/80 100 03/02/24 16:10 102 H 16 130/87 98 03/02/24 15:55 99 H 12 129/86 98 03/02/24 15:45 100 H 13 136/84 99 03/02/24 15:35 97 H 14 132/81 97 03/02/24 15:25 100 H 12 142/87 H 97 03/02/24 15:15 94 H 12 125/87 99 03/02/24 15:05 98 H 15 140/93 99 03/02/24 14:55 100 H 20 129/90 98 03/02/24 14:49 36.2 C L 97 H 20 121/85 100 03/02/24 12:07 156/108 H 03/02/24 12:00 163/111 H 03/02/24 11:58 36.9 C 98 H 20 175/111 H 97 03/02/24 07:26 36.7 C 91 H 16 137/95 96 03/02/24 04:21 36.6 C 91 H 16 123/83 97 03/02/24 00:19 36.7 C 94 H 16 150/97 H 97 03/01/24 20:12 37.2 C 96 H 16 154/106 H 97 03/01/24 18:28 36.9 C 97 H 18 156/114 H 99 O2 Del Method O2 Flow Rate 03/02/24 16:25 Nasal Cannula 3 03/02/24 16:10 Nasal Cannula 3 03/02/24 15:55 Nasal Cannula 3 03/02/24 15:45 Nasal Cannula 3 03/02/24 15:35 Nasal Cannula 3 03/02/24 15:25 Nasal Cannula 3 03/02/24 15:15 Nasal Cannula 3 03/02/24 15:05 Oxymask 6 03/02/24 14:55 Oxymask 6 03/02/24 14:49 Oxymask 8 03/02/24 12:07 03/02/24 12:00 03/02/24 11:58 Room Air 03/02/24 07:26 Room Air 03/02/24 04:21 Room Air 03/02/24 00:19 Room Air 03/01/24 20:12 Room Air 03/01/24 18:28 Room Air Pain Intensity Back: Pain Intensity: 3 Transfer of Care Handoff Completed per policy Notes Mental Status: alert / awake / arousable and participated in evaluation Patient Amnestic to Procedure: Yes Nausea / Vomiting: adequately controlled Pain: adequately controlled Airway Patency, RR, SpO2: stable & adequate BP & HR: stable & adequate Hydration State: stable & adequate Anesthetic Complications: no major complications apparent and Pt Satisfied with anesthetic care
[2024-03-02] MEDS: oxyCODONE HCL IR 5 MG TAB (IMMEDIATE RELEASE) PO PRN (16:53)
[2024-03-02] MEDS: KETOROLAC 30 MG/ML VIAL IV SCH (16:54)
[2024-03-02] MEDS: DOCUSATE SODIUM/SENNA 50/8.6MG TAB PO SCH (20:58)
[2024-03-02] MEDS: LANTUS PER UNIT CHARGE SC SCH (21:01)
[2024-03-03] MEDS: INSULIN ASPART PER UNIT CHARGE SC SCH (00:39)
[2024-03-03] MEDS: POLYETHYLENE (MIRALAX) 17 GM PACK PO SCH (05:07)
[2024-03-03 06:40] LABS: Basophils # (auto) 0.02 K/uL (0.00-0.20); Basophils % (auto) 0.2 %; Eosinophils # (auto) 0.01 K/uL (0.00-0.50); Eosinophils % (auto) 0.1 %; Hematocrit (blood only) 40.7 % (42.0-52.0); Hemoglobin 14.2 g/dl (14.0-18.0); Immature Granulocytes # (auto) 0.05 K/uL (0.01-0.20); Immature Granulocytes % (auto) 0.4 %; Lymphocytes % (auto) 12.4 %; Mean Corpuscular Hemoglobin 29.3 pg (25.0-34.0); Mean Corpuscular Hgb Conc 34.9 g/dL (32.0-36.0); Mean Corpuscular Volume 84.1 fL (80.0-100.0); Mean Platelet Volume 10.4 fL (9.4-12.4); Monocytes % (auto) 8.9 %; Neutrophils # (auto) 8.79 K/uL (1.40-6.50); Platelet Count 151 K/uL (130-400); RDW Coefficient of Variation 10.9 % (11.5-14.5); RDW Standard Deviation 33.6 fL (36.4-46.3); Red Blood Count 4.84 M/uL (4.70-6.10); White Blood Count 11.27 K/ul (4.8-10.8)
--- NOTE | 2024-03-03 08:35 | Orthopedic Progress Note ---
Date of Service March 03, 2024 Assessment & Plan (1) Lumbar disc herniation with radiculopathy: Plan: Ross is postoperative day 1 status post lumbar decompression and fusion at L4- 5. He will start physical therapy today. DVT prophylaxis is in the form of t eds and SCDs. Continue with pain control. Work on aggressive bowel regimen. Anticipate discharge home within the next 24 to 48 hours. Admission and Anticipated Discharge Date Admission Date: March 01, 2024 Subjective Ross is postoperative day 1 status post lumbar decompression and fusion of L4- 5. Leg pain has resolved. Back pain is controlled. KEYUR drain output last shift was 50 cc. H&H this morning are 14.2 and 40.7 respectively. He has been up and ambulatory. No other complaints. Review of Systems Review of Systems: All systems reviewed & are unremarkable except as noted in HPI & below Physical Exam Physical Exam: He is sitting up in bed in no acute distress Alert and oriented x 3 lumbar dressing is clean dry intact with functioning KEYUR drain strength is intact bilateral lower extremities Calf soft nontender bilaterally Results & Data Vital Signs (Past 12 Hours) Vital Signs Temp Pulse Resp BP Pulse Ox O2 Del Method 03/03/24 07:31 36.6 C 92 H 18 123/86 94 Room Air 03/03/24 04:07 36.6 C 91 H 16 125/86 97 Room Air 03/02/24 22:28 36.7 C 111 H 16 152/96 H 97 Room Air 03/02/24 21:15 Room Air
[2024-03-03] MEDS: LANTUS PER UNIT CHARGE SC ONE (09:30)
[2024-03-03] MEDS ORDERED: bisacodyL 10 MG SUPP PR PRN (12:49)
[2024-03-03] MEDS: INSULIN HUMAN REGULAR PER UNIT 10 UNITS in SYRINGE 9.9 ML IV ONE (13:31)
--- NOTE | 2024-03-03 14:51 | Pharmacy Report ---
Pharmacy Glycemic Short Note 2 - Date of Service March 03, 2024 - Glycemic Short BSG Results (Last 24 hours): 03/02/24 03/02/24 03/02/24 14:50 16:39 20:33 POC Glucose 247 H 242 H 331 H* 03/02/24 03/03/24 03/03/24 20:35 00:33 04:06 POC Glucose 328 H* 256 H 205 H 03/03/24 03/03/24 03/03/24 07:43 11:41 13:36 POC Glucose 212 H 338 H* 294 H OUTPATIENT ANTIDIABETIC REGIMEN: * none ASSESSMENT: 03/03 * Ross received 75 units of insulin yesterday (30 were basal), received 11 units the day prior, glycemic control improving but BSGs still above goal * POD#1: Fasting BSG this AM elevated around 200, patient received 13 units of correctional overnight, will aim for an addition 10 units of basal insulin today to cover. Basal scale ordered based on BSG to allow for lower and higher doses (up to a weight based stress of 3) since true basal need is unknown. * NovoLog significantly tightened yesterday, BSG over 300 today at lunch even with significant increase in insulin dosage, will tighten carbohydrate ratio slightly and give 10 units of IV regular insulin to help bring down BSGs. He does not appear to have received steroids preoperatively which could have caused the elevated BSGs. 03/02 * Ross Hernandez is a 43 yo M w/hx of asthma, obesity, fatty liver. Pt presents with severe back pain and difficulty w/ambulation x4 weeks. Patient found to have lumber disc herniation w/radiculopathy per MRI. Patient is currently undergoing L4-L5 decompression/possible fusion. 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 BSGs have been high since admission in 200s-300s and his current A1c is 13.3 with no former dx of diabetes, suggesting new onset diabetes and therefore pharmacy was consulted for glycemic management. PLAN FOR INPATIENT GLYCEMIC CONTROL: * Basal insulin * Lantus 10-30 units SQ BID (see eMAR for additional details) * Bolus insulin * NovoLog per scale ACHS or Q6hrs while NPO * Goal Range: Low 110 mg/dL - High 140 mg/dL * Correction Factor: 12 mg/dL/unit * Nutritional / Prandial insulin per carb ratio of 1 unit per 4 grams CHO consumed
--- NOTE | 2024-03-03 14:56 | Pharmacy Report ---
Pharmacy Glycemic Short Note 2 - Date of Service March 03, 2024 - Glycemic Short BSG Results (Last 24 hours): 03/02/24 03/02/24 03/02/24 14:50 16:39 20:33 POC Glucose 247 H 242 H 331 H* 03/02/24 03/03/24 03/03/24 20:35 00:33 04:06 POC Glucose 328 H* 256 H 205 H 03/03/24 03/03/24 03/03/24 07:43 11:41 13:36 POC Glucose 212 H 338 H* 294 H OUTPATIENT ANTIDIABETIC REGIMEN: * none ASSESSMENT: * Ross Hernandez is a 43 yo M w/hx of asthma, obesity, fatty liver. Pt presents with severe back pain and difficulty w/ambulation x4 weeks. Patient found to have lumber disc herniation w/radiculopathy per MRI. Patient is currently undergoing L4-L5 decompression/possible fusion. 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 BSGs have been high since admission in 200s-300s and his current A1c is 13.3 with no former dx of diabetes, suggesting new onset diabetes and therefore pharmacy was consulted for glycemic management. PLAN FOR INPATIENT GLYCEMIC CONTROL: * Basal insulin * Plan to give Lantus x1 dose once patient confirmed he received dexamethasone preop; a reasonable dose would be 30 units. * Will likely need Lantus daily if dexamethasone ordered postop as well * Bolus insulin * NovoLog per scale ACHS or Q6hrs while NPO * Goal Range: Low 110 mg/dL - High 140 mg/dL * Correction Factor: 15 mg/dL/unit * Nutritional / Prandial insulin per carb ratio of 1 unit per 5 grams CHO consumed
[2024-03-03 15:21] VITALS: RESP 16
--- NOTE | 2024-03-03 15:59 | Hospitalist Progress Note ---
Date of Service March 03, 2024 Assessment & Plan (1) Severe back pain: Plan: 43-year-old male comes because of severe back pain. Patient states he has back pain for years but 4 weeks ago when he was trying to load crossbow the pain got worse. Since then it is progressively worsening and pain shooting into his left thigh region. He says he could not ambulate more than few feet because of severe pain. Says he is using crutches. Denies any bowel or bladder incontinence. Denies any fever. No abdominal pain. No chest pain or shortness of breath. No headache or dizziness. No runny nose or sore throat. Appetite is okay. Patient says he took prednisone for 3 weeks. Since last few days he is on pregabalin. Patient denies any history of diabetes or hypertension. But his sugars are running high here on the labs. He is being managed for the fo llowing: Severe back pain Lumbar disc herniation with radiculopathy based on MRI done as outpatient Pain control Management as per spine Ortho. Status post lumbar spinal surgery 03/02. DVT prophylaxis and physical therapy per recommendation from primary team. Monitor for acute blood loss anemia. Hyperglycemia New Onset T2DM Recently was on steroids A1c of 13.3, critical care educator on board. Patient will likely need metformin and insulin on discharge and close follow-up with diabetic clinic upon discharge. Such has been discussed with the patient at length and he is agreeable. Answered all his questions. He was made aware of hypoglycemic s/s and possible ADR of metformin (GI upset). He will need repeat A1c in 3 months time. DVT prophylaxis: Per orthopedics PCP: None, pt will need to establish with PCP Disposition: Per orthopedics, will need diabetic meds and supplies at discharge. Time spent: 50 min. Admission and Anticipated Discharge Date Admission Date: March 01, 2024 Subjective Patient was seen and examined at bedside. Patient was sitting up in chair, on room air, NAD, resting comfortably. Patient reports improvement in his radicular symptoms, reports operative site pain under control. Patient reports eating okay, has not moved bowel. Patient A1c was 13.3, 80 has discussed in detail at bedside, we discussed the importance of ongoing monitoring of diabetes and management of diabetes to prevent future complications. Patient advised to follow-up with diabetic clinic upon discharge. Patient agreeable for metformin and insulin upon discharge. Physical Exam Physical Exam: Gen: WD/WN, NAD, A&O x3 HEENT: Normocephalic, atraumatic, conjunctivae moist, sclerae anicteric, mucous membranes moist. Lung: Clear to Auscultation bilaterally, no wheezes/rales/rhonchi Heart: Regular rate, regular rhythm, no murmurs, rubs, or gallops Abdomen: Soft, NT, ND +BS x 4 Extremities: No edema Skin: Warm, no rash, negative turgor. Low back with clean dressing without soakage. KEYUR drain with minimal serosanguineous collection noted. Results & Data Results & Data Vital Signs (Past 12 Hours) Vital Signs Temp Pulse Resp BP Pulse Ox O2 Del Method 03/03/24 15:19 36.9 C 99 H 16 137/91 98 Room Air 03/03/24 07:31 36.6 C 92 H 18 123/86 94 Room Air 03/03/24 04:07 36.6 C 91 H 16 125/86 97 Room Air
[2024-03-03] MEDS: traMADol HCL 50 MG TABLET PO PRN (18:42)
[2024-03-03] MEDS: HYDROmorphone INJ 1 MG/ML SYRINGE IV PRN (20:55)
[2024-03-03] MEDS: LANTUS PER UNIT CHARGE SC SCH (20:56)
[2024-03-04 05:59] LABS: Hematocrit (blood only) 37.4 % (42.0-52.0); Hemoglobin 12.9 g/dl (14.0-18.0); Mean Corpuscular Hemoglobin 29.5 pg (25.0-34.0); Mean Corpuscular Hgb Conc 34.5 g/dL (32.0-36.0); Mean Corpuscular Volume 85.6 fL (80.0-100.0); Mean Platelet Volume 10.3 fL (9.4-12.4); Platelet Count 103 K/uL (130-400); RDW Coefficient of Variation 11.1 % (11.5-14.5); RDW Standard Deviation 34.5 fL (36.4-46.3); Red Blood Count 4.37 M/uL (4.70-6.10); White Blood Count 8.64 K/ul (4.8-10.8)
[2024-03-04 06:15] LABS: Magnesium 1.7 mg/dl (1.7-2.4); Potassium 4.1 mmol/L (3.5-5.1)
[2024-03-04 07:05] VITALS: BP 123/83; PULSE 99; TEMP 98.1; O2SAT 97
--- NOTE | 2024-03-04 08:51 | Pharmacy Report ---
Pharmacy Glycemic Short Note 2 - Date of Service March 04, 2024 - Glycemic Short BSG Results (Last 24 hours): 03/03/24 03/03/24 03/03/24 11:41 13:36 16:25 Glucose POC Glucose 338 H* 294 H 145 H 03/03/24 03/04/24 03/04/24 20:32 05:23 07:48 Glucose 271 H POC Glucose 136 H 272 H OUTPATIENT ANTIDIABETIC REGIMEN: * none * HbA1c 13.3% (03/02/24) ASSESSMENT: 03/04 * Ross received 110 units of insulin yesterday (30 were basal, 10 IV regular, 70 bolus) * Fasting BSG this AM elevated, will continue with a basal scale to allow up to a stress of 3 to be given twice daily based on BSG. Will lower threshold for higher basal dose to be given as it appears he needs more at this time. * No changes to Novolog at this time, appear to be covering and correcting adequately. Discussed with Dr. Braga this AM, plan to start metformin on discharge and will start while he remains here. Novolog may need adjusted with addition of metformin, pharmacy will continue to monitor. 03/03 * Ross received 75 units of insulin yesterday (30 were basal), received 11 units the day prior, glycemic control improving but BSGs still above goal * POD#1: Fasting BSG this AM elevated around 200, patient received 13 units of correctional overnight, will aim for an addition 10 units of basal insulin today to cover. Basal scale ordered based on BSG to allow for lower and higher doses (up to a weight based stress of 3) since true basal need is unknown. * NovoLog significantly tightened yesterday, BSG over 300 today at lunch even with significant increase in insulin dosage, will tighten carbohydrate ratio slightly and give 10 units of IV regular insulin to help bring down BSGs. He does not appear to have received steroids preoperatively which could have caused the elevated BSGs. 03/02 * Ross Hernandez is a 43 yo M w/hx of asthma, obesity, fatty liver. Pt presents with severe back pain and difficulty w/ambulation x4 weeks. Patient found to have lumber disc herniation w/radiculopathy per MRI. Patient is currently undergoing L4-L5 decompression/possible fusion. 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 BSGs have been high since admission in 200s-300s and his current A1c is 13.3 with no former dx of diabetes, suggesting new onset diabetes and therefore pharmacy was consulted for glycemic management. PLAN FOR INPATIENT GLYCEMIC CONTROL: * Hold outpatient oral diabetes medications * Basal insulin * Lantus 10-30 units SQ BID (see eMAR for additional details) * Bolus insulin * NovoLog per scale ACHS or Q6hrs while NPO * Goal Range: Low 110 mg/dL - High 140 mg/dL * Correction Factor: 12 mg/dL/unit * Nutritional / Prandial insulin per carb ratio of 1 unit per 3 grams CHO consumed
[2024-03-04] MEDS: metFORMIN HCL ER 500 MG TABCR PO SCH (09:13)
[2024-03-04] MEDS ORDERED: Continuous Glucose Monitor SCH (09:30)
--- NOTE | 2024-03-04 09:46 | Discharge Summary ---
Date of Service March 04, 2024 Admission HPI Per Admitting Provider This is a 43-year-old male presents above-mentioned diagnosis. His pain is incapacitating. He has been unable to ambulate for approximately 4 weeks. He has had a history of chronic back pain with intermittent leg pain that progressed to its current severity when trying to load a crossbow 4 weeks ago. He now can only find a comfortable position when lying supine. Standing and walking requires crutches. He notes foot drop on the left and inability to pushoff with his left leg. He denies radicular complaints down his right lower extremity. He has failed physical therapy. Oral steroids provided little to no help. 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 He has been unable to work since the onset of his pain. Principal Diagnosis Lumbar disc herniation with neurologic deficit Discharge Data Allergies Allergy/AdvReac Type Severity Reaction Status Date / Time No Known Allergies Allergy Verified 02/29/24 10:48 Consultations 03/01/24 12:47 ED Decision to Admit Stat 03/01/24 15:23 Consult Internal Medicine Routine Procedures Performed Operation Date: 03/02/24 12:55 Actual Procedures p L4-L5 Decompression and Fusion, Spinal Cord Monitoring(Not Applicable) - Sivakumar Dash, DO Diabetes Follow up Diabetes Follow-up Needed for HgbA1c >9%,Newly Diagnosed Diabetes Hospital Course (1) Lumbar disc herniation with radiculopathy: Patient was admitted to the hospital secondary to severe left leg pain and inability to ambulate and progressive neurologic deficit. He underwent emergent decompression fusion. Postoperatively his leg symptoms markedly proved. He is doing very well with physical therapy. His hypertension has resolved. His pain is well-controlled. Strength improving. Subsidy discharged home. Discharge orders instructions from the chart for further review. Total Time Total Time Spent Total Time Spent (In Minutes): 20 minutes Discharge Plan Discharge Items Patient Disposition: Home - Self-Care Reason For Visit: BACK PAIN, TRAVEL DOWN LT LEG, HYPERGLYCEMIA Discharge Diagnosis: Lumbar disc herniation with neurologic deficit posterior Activity: As commented below Non-emergency contact: Primary Care Provider Call non-emergency contact if: you have any medication questions Follow-up/Referrals: Grady Shetty MD [Outside Practitioners] - (Please ensure a close follow up appointment and diabetic education.) Diet: Regular Addtl Attending Provider Instructions: ACTIVITY RECOMMENDATIONS: SELF CARE INSTRUCTIONS AFTER THORACIC/LUMBAR FUSIONS 1. You may walk to your tolerance. It is good exercise for your legs and back. Expect some back and intermittent leg aches and pains. 2. You may perform "counter-top" level activities (make a sandwich, will with a project, etc.). 3. No bending or lifting of more than 10 pounds or back twisting of any nature (roll like a log when turning in bed). 4. You may ride in a car for 20-30 minutes at a time. No driving until after your first visit with your doctor. 5. Frequent changes of position and restricting sitting to 30 minutes at a time will help limit the amount of back spasms and stiffness you may experience. 6. You may discontinue the use of ambulatory aids (cane, crutches, etc.) once your strength and confidence allow. 7. You may research program internship the shower and let water strike your incision when you arrive home at least once daily. Do not take a tub bath, sit in a hot tub or go into a swimming pool until after your first recheck in the office. 8. You may resume previous diet. SPECIAL CARE INSTRUCTIONS: VERY IMPORTANT TO READ AND REVIEW A. Your surgical incision has been closed with a cosmetic suture under the skin that will dissolve in about 6 weeks. In 14 days, you can use a pair of clean scissors and cut the suture that is left outside of the skin at the ends of your incision. 1. The small skin tapes can be removed 7 days after surgery if they have not fallen off by that point. 2. You may keep the wound open to air as much as possible to promote healing after post-op day number 5 unless told otherwise by your doctor. 3. If you think the wound looks like it is becoming infected (redness or worsening drainage) and/or you are experiencing fever, chill or worsening back pain and muscle spasms, contact the office so that we may evaluate you as soon as possible. B. Complications are uncommon, but please contact us if you have any signs or symptoms of: 1. wound infection (fever higher than 102.5 degrees F, redness, separation of wound, drainage, or increasing pain from the incision) 2. blood clots in legs (pain, swelling, redness and warmth in legs) 3. urinary tract infection (fever higher than 102.5 degrees F, burning upon urination or increased frequency of urination) 4. nerve problems (inability to walk on your toes or heels, numbness, loss of bowel or bladder control) 5. any other symptoms that concern you C. Please call the office at if you have any concerns or questions about your operation or recovery. D. No smoking! Smoking drastically decreases the chance of a solid fusion. E. Do not take any anti-inflammatory medications (Indocin, Advil, Motrin, Aspirin, Naprosyn, etc.) as these may inhibit the chance of a solid fusion. Tylenol is okay to take for pain. MANAGING PAIN AFTER SPINAL SURGERY 1. Narcotic medication is intended for short-term use and will be provided for surgical pain. Surgical pain usually lasts for a period of 4-6 weeks. Narcotic medication includes Percocet, Vicodin, Darvocet, Tylenol #3 or Lortab. 2. Longer-term pain is more appropriately treated with non-narcotic medication such as Tylenol ES. 3. Muscle spasm is not appropriately treated with narcotics. Muscle relaxers such as Soma, Flexeril or Skelaxin can be used along with Tylenol ES. 4. Remember that we all live with some "aches and pains". This is not unusual or uncommon after an injury or as we get older. a. Back pain is expected and may include muscle spasms for 4 to 6 weeks after surgery. The pain should gradually improve. If the pain worsens for no apparent reason, please contact the office. b. Intermittent leg pain may also be experienced and should not be concerned about unless it worsens for no apparent reason. If so, please contact the office. 5. We will provide appropriate medication within the normal guidelines of their prescribed use. We will also be very cautious and aware of potential abuse and extended duration of patients' medication needs. a. Pain medications are for your comfort and to assist with sleep and rest so that the tissue can heal. They are not provided in order to return to normal activity and should not be used through the day. To do so or worsening pain at night can result from ongoing tissue damage and development of tolerance to the prescribed medicine. 6. Please allow 2-3 days to process refills. Prescriptions will not be mailed but must be picked up at the office. FOLLOW UP VISIT: Keep your scheduled follow-up appointment. Any questions, please call the office at . Pending Studies at Discharge: No Stand-Alone Forms: My [facility], Smoking Cessation Medications and DC Order Prescriptions: New tramadol 50 mg tablet 50 mg PO Q6H PRN (Reason: pain, moderate) Qty: 30 0RF oxycodone 5 mg tablet 5 mg PO Q6H PRN (Reason: pain) Qty: 30 0RF Continued pregabalin 75 mg Capsule 75 mg PO BID Discharge Orders: Discharge Order (Routine); Ordered 03/04/24 Ordered By: Sivakumar Dash Admission Data Admit Date/Time: 03/01/24 12:53 Attending Provider: Sivakumar Dash Admit Provider: Sivakumar Dash Primary Care Provider: PCP,NO Other Providers: Deja Braga; Sivakumar Dash; Kath Horton.
--- NOTE | 2024-03-04 11:53 | Hospitalist Progress Note ---
Date of Service March 04, 2024 Assessment & Plan (1) Severe back pain: Plan: 43-year-old male comes because of severe back pain. Patient states he has back pain for years but 4 weeks ago when he was trying to load crossbow the pain got worse. Since then it is progressively worsening and pain shooting into his left thigh region. He says he could not ambulate more than few feet because of severe pain. Says he is using crutches. Denies any bowel or bladder incontinence. Denies any fever. No abdominal pain. No chest pain or shortness of breath. No headache or dizziness. No runny nose or sore throat. Appetite is okay. Patient says he took prednisone for 3 weeks. Since last few days he is on pregabalin. Patient denies any history of diabetes or hypertension. But his sugars are running high here on the labs. He is being managed for the fo llowing: Severe back pain Lumbar disc herniation with radiculopathy based on MRI done as outpatient Pain control Management as per spine Ortho. Status post lumbar spinal surgery 03/02. DVT prophylaxis and physical therapy per recommendation from primary team. Monitor for acute blood loss anemia. 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 Patient will likely need metformin and insulin on discharge and close follow-up with diabetic clinic upon discharge. Such has been discussed with the patient at length and he is agreeable. Answered all his questions. He was made aware of hypoglycemic s/s and possible ADR of metformin (GI upset). He will need repeat A1c in 3 months time. Patient will be discharged on metformin 500 mg twice daily and Lantus 30 units daily with a plan for close follow-up with PCP and diabetic clinic upon discharge which patient is aware of. DVT prophylaxis: Per orthopedics PCP: None, pt will need to establish with PCP Disposition: Per orthopedics, will need diabetic meds and supplies at discharge. Time spent: 40 min. Admission and Anticipated Discharge Date Admission Date: March 01, 2024 Subjective Patient was seen and examined at bedside. Patient was sitting up in bed, on room air, NAD, resting comfortably. Patient reports improvement in his radicular symptoms, reports operative site pain under control. Patient denies any other complaints. importance of insulin and metformin and close follow-up with PCP and diabetic clinic upon discharge reiterated. Physical Exam Physical Exam: Gen: WD/WN, NAD, A&O x3 HEENT: Normocephalic, atraumatic, conjunctivae moist, sclerae anicteric, mucous membranes moist. Lung: Clear to Auscultation bilaterally, no wheezes/rales/rhonchi Heart: Regular rate, regular rhythm, no murmurs, rubs, or gallops Abdomen: Soft, NT, ND +BS x 4 Extremities: No edema Skin: Warm, no rash, negative turgor. Low back with clean dressing without soakage. KEYUR drain with minimal serosanguineous collection noted. Results & Data Results & Data Vital Signs (Past 12 Hours) Vital Signs Temp Pulse Resp BP Pulse Ox O2 Del Method 03/04/24 07:04 36.7 C 99 H 16 123/83 97 Room Air
== END 2024-03-04 13:03 | disposition home or self-care (01) | DRG 402 ==
LOC: ED 07:54 → EDINP 12:53 → 3E 16:23